=== PATIENT | female | born 1940 | race Caucasian/White ===

== ENCOUNTER 2024-09-10 15:20 | Inpatient (IN) ==
--- NOTE | 2024-09-10 16:01 | ED Physician Documentation ---
History of Present Illness Stated complaint Stated Complaint: RUQ PX Chief complaint Chief Complaint: Abd Pain Additonal information Additional information: 84yo female with no PMHX except hyst (but doesn't see MDs). Developed RUQpain x 36 horus ago, worse with movement. Associated nausea, no vomiting. No probs with BMs or urine 1 mo hx abd bloating. No weight loss. Meds/Allgy Home Medications Ambulatory Orders Medication Instructions Recorded Confirmed No Known Home Medications 09/10/24 09/10/24 Allergies Allergies Allergy/AdvReac Type Severity Reaction Status Date / Time No Known Drug Allergies Allergy Verified 09/10/24 15:36 [facility] Medical History Medical History (Updated 09/10/24 @ 17:48 by Kiran Duarte MD) Macular degeneration of left eye Surgical History Surgical History (Updated 09/10/24 @ 15:35 by Adeola Rivera, RN, BSN) Hx of hysterectomy Social History Social History (Updated 09/10/24 @ 19:11 by Niecy Cortez DO) Smoking Status: Former smoker If you are a former smoker, when did you quit? (Date/Year): 1979 Living arrangement: At home Marital Status: Living Condition: Alone Support Person: Yes Relationship: Living Situation Details: neighbors are support system Level: Independent Do you feel safe in your home environment?: Yes Suffered physical, verbal, emotional, or financial abuse?: No ETOH Use: None Are you sexually active?: No Exam Constitutional normal general appearance and no apparent distress Gastrointestinal normoactive bowel sounds Quite tender in RUQ with rigidity. Extremities 1+ BLE edema Results Vitals Vitals: Vital Signs - 24 hr 09/10/24 15:32 09/10/24 16:13 09/10/24 17:06 Temperature 36.8 C Temperature Source Oral Pulse Rate 100 H Respiratory Rate 15 Blood Pressure 196/86 H O2 Saturation 98 O2 Source Room air Pain Intensity 9 9 0 09/10/24 17:26 09/10/24 18:12 09/10/24 18:14 Temperature Temperature Source Pulse Rate 99 H 92 H Respiratory Rate 16 16 Blood Pressure 165/113 H 187/76 H O2 Saturation 97 95 O2 Source Room air Room air Pain Intensity 2 5 5 09/10/24 19:26 Temperature Temperature Source Pulse Rate 65 Respiratory Rate 18 Blood Pressure 158/71 H O2 Saturation 95 O2 Source Room air Pain Intensity 3 Oxygen O2 Source Room air EKG (time done) 1750: EKG releavant findings:: EKG personally interpreted by author of this note. Relevant findings are: Normal sinus rhythm with a rate of 89. Very mild lateral ST depression. No prolonged QT. No Q waves. Labs Labs: Laboratory Tests 09/10/24 09/10/24 09/10/24 16:03 16:21 17:16 WBC 10.1 RBC 4.58 Hgb 14.3 Hct 42.0 MCV 91.7 MCH 31.2 H MCHC 34.0 RDW 13.5 Plt Count 151 MPV 10.0 Neut # (Auto) 9.3 H Lymph # (Auto) 0.3 L [place] # (Auto) 0.5 Eos # (Auto) 0.0 Baso # (Auto) 0.0 Absolute Nucleated RBC 0.00 Nucleated RBC % 0.0 PT INR Sodium 135 Potassium 3.7 Chloride 101 Carbon Dioxide 30 Anion Gap 4.0 L BUN 15 Creatinine 0.7 Estimated GFR (MDRD) 79 L Glucose 151 H Calcium 10.7 H Total Bilirubin 1.0 AST 26 ALT 26 Alkaline Phosphatase 88 Total Protein 7.1 Albumin 4.1 Globulin 3.0 Albumin/Globulin Ratio 1.4 Lipase 12 Urine Color DARK YELLOW Urine Clarity CLEAR Urine pH 6.0 Ur Specific [place] 1.025 Urine Protein 30 H Urine Glucose (UA) NEGATIVE Urine Ketones >=80 H Urine Occult Blood NEGATIVE Urine Nitrite NEGATIVE Urine Bilirubin SMALL H Urine Urobilinogen 1 (NORMAL) Ur Leukocyte Esterase NEGATIVE Urine RBC 0-5 Urine WBC 4-5 Ur Squamous Epith Cells FEW Squamous Urine Bacteria Rare Ur Microscopic Review INDICATED Urine Culture Comments NOT INDICATED 09/10/24 18:00 WBC RBC Hgb Hct MCV MCH MCHC RDW Plt Count MPV Neut # (Auto) Lymph # (Auto) [place] # (Auto) Eos # (Auto) Baso # (Auto) Absolute Nucleated RBC Nucleated RBC % PT 13.3 H INR 1.2 Sodium Potassium Chloride Carbon Dioxide Anion Gap BUN Creatinine Estimated GFR (MDRD) Glucose Calcium Total Bilirubin AST ALT Alkaline Phosphatase Total Protein Albumin Globulin Albumin/Globulin Ratio Lipase Urine Color Urine Clarity Urine pH Ur Specific [place] Urine Protein Urine Glucose (UA) Urine Ketones Urine Occult Blood Urine Nitrite Urine Bilirubin Urine Urobilinogen Ur Leukocyte Esterase Urine RBC Urine WBC Ur Squamous Epith Cells Urine Bacteria Ur Microscopic Review Urine Culture Comments Rads (name of study) CT abd: Relevant Findings:: Final report received and EMP independent interpretation of test (Free fluid on the right from indeterminant source) Interpretation: 1. Inflammatory changes and fluid in the right abdomen. Differential diagnosis appendicitis versus cholecystitis. The appendix is slightly dilated. Inflammatory changes surrounding the appendix. The gallbladder demonstrates pericholecystic fluid and wall enhancement. No calcified gallstones are seen. Mildly prominent bile ducts. 2. No bowel obstruction. No pneumoperitoneum. 3. Small indeterminate lesion in the liver measuring 1.4 cm. This could represent a hemangioma. -This can be further characterized with multiphase liver CT or MRI on a nonemergent basis. Preop CXR-NAD: Relevant Findings:: Final report received and EMP independent interpretation of test PD Medical Decision Making ED course ED course: She presents with severe right upper quadrant pain of 36 hours duration and is quite tender. She has unremarkable white count. Mild hyperglycemia. Concentrated urine. She was administered morphine with good relief. The CT demonstrates free fluid on the right. Radiologist vacillated as to whether this was appendicitis versus cholecystitis. Clinically more consistent with cholecystitis. Dr. Cortez is our surgeon and I asked her to come see the patient. She requested an add-on EKG and chest x-ray for preop purposes given her advanced age and lack of routine care. Subsequently she also requested a right upper quadrant ultrasound to aid in her surgical decision making. Her preop EKG and chest x-ray were unremarkable. We did give her some Zosyn for likely intra-abdominal infection. The patient was counseled as to the diagnosis and need for admission. This document was made in part using voice recognition software, while efforts are made to proofread this document, sound alike an grammatical errors may occur. Discharge Plan Discharge Patient Disposition: ED Transfer to [facility] Condition: Serious Clinical Impression: Acute abdomen Prescriptions: No Action No Known Home Medications Print Language: Kenyan Stand Alone Forms: PCP List
[2024-09-10 16:08] LABS: BASOPHILS % (AUTO) 0.2 %; HGB - HEMOGLOBIN 14.3 g/dL (12.0-16.0); LYMPHOCYTES # (AUTO) 0.3 10^3/uL (1.5-3.5); MEAN CORPUSCULAR HEMOGLOBIN 31.2 pg (27.0-31.0); MEAN CORPUSCULAR VOLUME 91.7 fL (81.0-99.0); MONOCYTES # (AUTO) 0.5 10^3/uL (0.0-1.0); MONOCYTES % (AUTO) 4.6 %; NEUTROPHILS # (AUTO) 9.3 10^3/uL (1.5-6.6); PLT - PLATELET COUNT 151 10^3/uL (130-450); RED BLOOD COUNT 4.58 10^6/uL (4.20-5.40); RED CELL DISTRIBUTION WIDTH 13.5 % (12.0-15.0); WHITE BLOOD COUNT 10.1 x10^3/uL (4.8-10.8)
[2024-09-10] MEDS: MORPHINE 10 MG/ML VIAL IVP STA ×2 (16:13→18:12)
[2024-09-10 16:39] LABS: ALBUMIN 4.1 g/dL (3.2-5.5); ALBUMIN/GLOBULIN RATIO 1.4 (1.0-2.2); CALCIUM 10.7 mg/dL (8.5-10.3); CREATININE 0.7 mg/dL (0.6-1.3); POTASSIUM 3.7 mmol/L (3.5-4.5); TOTAL PROTEIN 7.1 g/dL (6.4-8.9)
[2024-09-10] MEDS ORDERED: iohexoL-300 100 ML VIAL ONE (16:39)
[2024-09-10] MEDS: iohexoL-300 100 ML VIAL IVP ONE (17:01)
[2024-09-10 17:24] LABS: BILIRUBIN,URINE SMALL (NEGATIVE); GLUCOSE, URINE (UA) NEGATIVE (NEGATIVE); KETONES,URINE (UA) >=80 mg/dL (NEGATIVE); LEUKOCYTE ESTERASE, URINE NEGATIVE (NEGATIVE); NITRITE,URINE NEGATIVE (NEGATIVE); OCCULT BLOOD,URINE NEGATIVE (NEGATIVE); PROTEIN,URINE 30 mg/dL (NEGATIVE); UROBILINOGEN,URINE 1 (NORMAL) E.U./dL (NORMAL)
[2024-09-10 17:28] LABS: CLARITY,URINE CLEAR (CLEAR)
[2024-09-10 17:34] LABS: BACTERIA,URINE Rare /HPF (None Seen); RBC,URINE 0-5 /HPF (0-5); SQUAMOUS EPITHELIAL CELL,UR FEW Squamous (<= Few)
--- NOTE | 2024-09-10 17:38 | CT Report ---
PROCEDURE: CT Abdomen/Pelvis W INDICATIONS: RUQ pain, IV only CONTRAST: 100ml [id number] TECHNIQUE: After the administration of intravenous contrast, a CT scan of the abdomen and pelvis was performed. Images were recorded and evaluated at appropriate window settings. Reformats: coronal and sagittal. F or radiation dose reduction, the following was used: automated exposure control, adjustment of mA and /or kV according to patient size. COMPARISON: None. FINDINGS: Image quality: Diagnostic. Lower chest: Unremarkable. Liver: Small cyst or area of scarring at the right posterior liver. Small lesion measuring 1.4 cm wit h a enhancing focus, (2/24). This could represent a small hemangioma. Gallbladder: Within normal limits in size. No calcified gallstones. There is pericholecystic fluid. I ncreased conspicuity of the gallbladder wall. Biliary tree: There are prominent intrahepatic bile ducts. CBD measures 0.8 cm, (4/34). Spleen: No splenomegaly. Pancreas: Pancreatic duct is within normal limits. No peripancreatic fluid collection. Adrenals: No adrenal nodule. Kidneys and ureters: No hydronephrosis. No renal cystic lesion which requires follow up. No solid mas s. Stomach, bowel and peritoneum: The cecum is prominent. There is fluid surrounding the cecum. The appe ndix is measures 0.8 cm in diameter, (4/35). The appendix is not well-defined. There is haziness to t he surrounding fat. No air within the appendiceal lumen. Small focus near the tip of the appendix whi ch could represent an appendicolith. Small amount of fluid in the right abdomen. No pneumoperitoneum. Lymph nodes: No central or retroperitoneal adenopathy. Vessels: No infrarenal aortic aneurysm. Patent portal vein. PELVIS Reproductive organs: The uterus is absent. There are prominent left pelvic veins. Small amount of ray e fluid in the pelvis. Bladder: No stone. Pelvic lymph nodes: No pelvic adenopathy by size criteria. Bones: No aggressive osseous abnormality. Multilevel DDD. Severe right hip DJD. Other: No significant ventral or inguinal hernia. IMPRESSION: 1. Inflammatory changes and fluid in the right abdomen. Differential diagnosis appendicitis versus ch olecystitis. The appendix is slightly dilated. Inflammatory changes surrounding the appendix. The gal lbladder demonstrates pericholecystic fluid and wall enhancement. No calcified gallstones are seen. M ildly prominent bile ducts. 2. No bowel obstruction. No pneumoperitoneum. 3. Small indeterminate lesion in the liver measuring 1.4 cm. This could represent a hemangioma. -This can be further characterized with multiphase liver CT or MRI on a nonemergent basis. Results were communicated to Dr. Stevenson at 09/10/2024 5:33 PM PST. Reviewed by: Pelon Gay MD on 09/10/2024 5:37 PM PST Approved by: Pelon Gay MD on 09/10/2024 5:37 PM PST Station ID: [id number]
[2024-09-10] MEDS: PIPERACILLIN/TAZOBACTAM 3.375 GM in SODIUM CHLORIDE 0.9% MINIBAG 100 ML IV STA (18:07)
--- NOTE | 2024-09-10 18:15 | XRAY Report ---
PROCEDURE: XR Chest 1V INDICATIONS: preop TECHNIQUE: One view of the chest was acquired. COMPARISON: None. FINDINGS: Surgical changes and devices: None. Lungs and pleura: No dense airspace disease or pleural effusions. Mediastinum: Normal heart size Bones and chest wall: Degenerative findings. IMPRESSION: No acute radiographic abnormality on this single view study. Reviewed by: Trenton Sherman MD on 09/10/2024 6:02 PM [facility] Approved by: Trenton Sherman MD on 09/10/2024 6:02 PM [facility] Station ID: [id number]
[2024-09-10 18:19] LABS: INR 1.2 (0.8-1.2); PT - PROTHROMBIN TIME 13.3 secs (9.9-12.6)
[2024-09-10] MEDS: LABETALOL 20 MG/4 ML SYRINGE IVP STA (19:04)
--- NOTE | 2024-09-10 19:17 | Ultrasound Report ---
PROCEDURE: US Abdomen Limited INDICATIONS: RUQ pain TECHNIQUE: Real-time focused scanning was performed of the abdomen, with image documentation. COMPARISONS: CT abdomen and pelvis earlier today. FINDINGS: Liver: Echogenic focus in the right lobe of the liver measuring about 1.9 cm. Most consistent with a hemangioma. Gallbladder: Gallbladder is prominent size. The gallbladder wall measures 3.3 cm and is minimally thi ckened. No pericholecystic fluid is appreciated. No sonographic Steele's sign reported. No gallstones . Biliary ducts: Intrahepatic bile ducts are non-dilated. Extrahepatic bile duct caliber measures 9 m m. Normal is 6-7 mm or less in diameter, or 10 mm or less post-cholecystectomy. Pancreas: Not well visualized due to overlying bowel gas. Right kidney: Normal in size and echotexture. Right kidney measures 10.4 cm long. No hydronephrosis or nephrolithiasis. No solid masses. No complex renal cystic lesions which require follow-up. IMPRESSION: Exam is technically difficult. 1. Mild gallbladder wall thickening. No gallstones. Acalculus cholecystitis remains in the differenti al diagnosis. 2. Mild biliary ductal dilatation. 3. Echogenic focus in the liver measuring 1.9 cm. This is most consistent with a hemangioma. Reviewed by: Pelon Gay MD on 09/10/2024 7:16 PM PST Approved by: Pelon Gay MD on 09/10/2024 7:16 PM PST Station ID: [id number]
--- NOTE | 2024-09-10 19:29 | HISTORY & PHYSICAL EXAMINATION ---
History of Present Illness History of Present Illness HPI Comment/Other: 84yoF began having right sided abdominal pain on Monday (2 days ago), ate some left overs the day before and thought it was food poisoning, but pain progressed, associated with nausea, anorexia. Denies emesis, had normal BM this AM, no blood in stool. Denies similar prior pain in the past. Denies history of heartburn. Denies fever chestpain or sob. She takes no medications, has not been to a doctor in years, generally does not like doctors. Is hypertensive in the ED but states she always has 'white coat htn', hypertension has persisted throughout ED stay and is getting labetalol now. She is a and lives alone for last 27yrs, [place] in [place]. No tob or etoh use. She has never considered her wishes around end of life choices, and at this time would like to be a full code. Meds/Allgy Home Medications Ambulatory Orders Medication Instructions Recorded Confirmed No Known Home Medications 09/10/24 09/10/24 Allergies Allergies Allergy/AdvReac Type Severity Reaction Status Date / Time No Known Drug Allergies Allergy Verified 09/10/24 15:36 [facility] Medical History Medical History (Updated 09/10/24 @ 17:48 by Kiran Duarte MD) Macular degeneration of left eye Surgical History Surgical History (Updated 09/10/24 @ 15:35 by Adeola Rivera, RN, BSN) Hx of hysterectomy Social History Social History (Updated 09/10/24 @ 19:11 by Niecy Cortez DO) Smoking Status: Former smoker If you are a former smoker, when did you quit? (Date/Year): 1979 Living arrangement: At home Marital Status: Living Condition: Alone Support Person: Yes Relationship: Living Situation Details: neighbors are support system Level: Independent Do you feel safe in your home environment?: Yes Suffered physical, verbal, emotional, or financial abuse?: No ETOH Use: None Are you sexually active?: No Review of Systems Status of ROS: 10 or more systems reviewed and unremarkable except as noted in history and below Exam Constitutional normal general appearance Frail elderly female, mild distress 2/2 pain HENMT head/scalp atraumatic Eyes EOMs intact bilaterally and conjunctivae normal Neck/C-Spine visual inspection normal Respiratory normal respiratory effort Cardiovascular normal heart rate noted Gastrointestinal abdomen abnormal to inspection, abdomen soft to palpation, tender to palpation and distended distended abdomen but soft, no left sided abdominal pain, both RUQ and RLQ exquisite ttp with peritoneal signs (+murpheys, +rebound ttp) Extremities no deformity mild L>R Edema at ankles, mild venous reflux changes Psychiatry oriented x3 Skin skin color normal Conclusion/Plan Problem List (1) Acute abdomen: Plan: 84yoF presenting with 2 days of right sided abdominal pain, acute abdomen. No established comorbidities as she does not visit the doctor, but persistent HTN in ED; glucose 150. +Murpheys/rebound exam on right side of abdomen, low grade tachycardia (92-100) without fever or hypotension. Labs overall unremarkable - no leukocytosis, LFTs and lipase normal, creatinine normal; UA +Ketones. CT remarkable for significant amount of free fluid and right sided inflammation, but unclear if etiology is appendix vs gallbladder vs other. RUQUS shows gbw at upper limit of normal and significantly dilated duct without visible stones in gallbladder or duct, though in the setting of normal LFTs. She clearly has an acute abdomen by exam and an acute process on CT, though specific diagnosis not clear via exam, labs & imaging. The volume of free fluid makes me concerned for perforated ulcer, however there is no free air or specific finding on CT to localize source of stomach or duodenum. Discussed findings with patient, and recommend diagnostic laparoscopy. Discussed that possible interventions would include appendectomy, cholecystectomy (in which case I would completed a cholangiogram), bowel resection, conversion to open surgery, or other interventions as indicated. I discussed that the alternative is to not go to surgery now, admit her and observe/trend labs to see if a more specific diagnosis becomes clear; and that this poses a risk that she become more sick before we can do a required surgery, which could increase potential complications. We also discussed that with her not having seen a doctor in years, there are increased risks under anesthesia of encountering unknown comorbidities, notably her significant HTN in the ED. A CXR and EKG were checked in the ED without acute abnormalities. She understands, and would like to proceed with surgery. - Proceed to OR for diagnostic laparoscopy, possible appendectomy, possible cholecystectomy, possible cholangiogram, possible exploratory laparotomy, or other interventions as indicated. - Labetalol and Zosyn given in ED - Admit to Obsv postop - Further postop plan pending intraoperative findings. Niecy Cortez DO, ERASTO General Surgeon, [facility] Lab Results Lab results reviewed: Yes 09/10/24 16:03 09/10/24 16:21 Diagnostic Imaging Results Diagnostic Imaging Results: positive Final report reviewed and Read contemporaneously Diagnostic Imaging Results Comments: CT abd/pel - PROCEDURE: CT Abdomen/Pelvis W INDICATIONS: RUQ pain, IV only CONTRAST: 100ml [id number] TECHNIQUE: After the administration of intravenous contrast, a CT scan of the abdomen and pelvis was performed. Images were recorded and evaluated at appropriate window settings. Reformats: coronal and sagittal. For radiation dose reduction, the following was used: automated exposure control, adjustment of mA and/or kV according to patient size. COMPARISON: None. FINDINGS: Image quality: Diagnostic. Lower chest: Unremarkable. Liver: Small cyst or area of scarring at the right posterior liver. Small lesion measuring 1.4 cm with a enhancing focus, (2/24). This could represent a small hemangioma. Gallbladder: Within normal limits in size. No calcified gallstones. There is pericholecystic fluid. Increased conspicuity of the gallbladder wall. Biliary tree: There are prominent intrahepatic bile ducts. CBD measures 0.8 cm, (4/34). Spleen: No splenomegaly. Pancreas: Pancreatic duct is within normal limits. No peripancreatic fluid collection. Adrenals: No adrenal nodule. Kidneys and ureters: No hydronephrosis. No renal cystic lesion which requires follow up. No solid mass. Stomach, bowel and peritoneum: The cecum is prominent. There is fluid surrounding the cecum. The appendix is measures 0.8 cm in diameter, (4/35). The appendix is not well-defined. There is haziness to the surrounding fat. No air within the appendiceal lumen. Small focus near the tip of the appendix which could represent an appendicolith. Small amount of fluid in the right abdomen. No pneumoperitoneum. Lymph nodes: No central or retroperitoneal adenopathy. Vessels: No infrarenal aortic aneurysm. Patent portal vein. PELVIS Reproductive organs: The uterus is absent. There are prominent left pelvic veins. Small amount of free fluid in the pelvis. Bladder: No stone. Pelvic lymph nodes: No pelvic adenopathy by size criteria. Bones: No aggressive osseous abnormality. Multilevel DDD. Severe right hip DJD. Other: No significant ventral or inguinal hernia. IMPRESSION: 1. Inflammatory changes and fluid in the right abdomen. Differential diagnosis appendicitis versus cholecystitis. The appendix is slightly dilated. Inflammatory changes surrounding the appendix. The gallbladder demonstrates pericholecystic fluid and wall enhancement. No calcified gallstones are seen. Mildly prominent bile ducts. 2. No bowel obstruction. No pneumoperitoneum. 3. Small indeterminate lesion in the liver measuring 1.4 cm. This could represent a hemangioma. -This can be further characterized with multiphase liver CT or MRI on a nonemergent basis. Results were communicated to Dr. Stevenson at 09/10/2024 5:33 PM PST. Reviewed by: Pelon Gay MD on 09/10/2024 5:37 PM PST Approved by: Pelon Gay MD on 09/10/2024 5:37 PM PST RUQUS - GBW at upper limit of normal but no cholelithiasis, CBD 9mm, CHD 13mm, no choledocholithiasis visualized CXR - PROCEDURE: XR Chest 1V INDICATIONS: preop TECHNIQUE: One view of the chest was acquired. COMPARISON: None. FINDINGS: Surgical changes and devices: None. Lungs and pleura: No dense airspace disease or pleural effusions. Mediastinum: Normal heart size Bones and chest wall: Degenerative findings. IMPRESSION: No acute radiographic abnormality on this single view study. EKG Results EKG Comparison: Old EKG unavailable
[2024-09-10] MEDS ORDERED: LIDOCAINE 1%-EPI 1:100000 20 ML MDV ONE (19:56)
[2024-09-10] MEDS ORDERED: iohexoL-240 10 ML VIAL IVP ONE (19:56)
[2024-09-10] MEDS ORDERED: BUPIVACAINE 0.25% PF 30 ML VIAL ONE (19:56)
[2024-09-10 19:58] LABS: HCG UR QUAL NEGATIVE
[2024-09-10] MEDS ORDERED: fentaNYL 100 MCG/2 ML VIAL ONE ×2 (21:09→22:52)
[2024-09-10] MEDS ORDERED: PROPOFOL 200 MG/20 ML VIAL IVP ONE (21:19)
[2024-09-10] MEDS ORDERED: ONDANSETRON 4 MG/2 ML VIAL ONE (21:19)
[2024-09-10] MEDS ORDERED: LIDOCAINE-PF 2% 10 ML AMP SUBQ ONE (21:19)
[2024-09-10] MEDS ORDERED: ROCURONIUM 50 MG/5 ML VIAL ONE (21:19)
--- NOTE | 2024-09-10 21:52 | ANESTHESIA PROCEDURE NOTE ---
Pre-Anesthesia VS, & Labs Diagnosis Surgical Diagnosis:: abd pain Procedure Procedure: exploratory laparotomy Vitals Vital Signs: Temp Pulse Resp BP Pulse Ox 36.8 C 78 18 178/65 H 98 09/10/24 15:32 09/10/24 21:10 09/10/24 21:10 09/10/24 21:10 09/10/24 21:10 NPO NPO: >8 hours Is Patient ?: No Lab Results Current Lab Results: Laboratory Tests 09/10/24 18:00: PT 13.3 H, INR 1.2 09/10/24 16:21: Sodium 135, Potassium 3.7, Chloride 101, Carbon Dioxide 30, A nion Gap 4.0 L, BUN 15, Creatinine 0.7, Estimated GFR (MDRD) 79 L, Glucose 151 H , Calcium 10.7 H, Total Bilirubin 1.0, AST 26, ALT 26, Alkaline Phosphatase 88, Total Protein 7.1, Albumin 4.1, Globulin 3.0, Albumin/Globulin Ratio 1.4, Lipase 12 09/10/24 16:03: WBC 10.1, RBC 4.58, Hgb 14.3, Hct 42.0, MCV 91.7, MCH 31.2 H, MCHC 34.0, RDW 13.5, Plt Count 151, MPV 10.0, Neut # (Auto) 9.3 H, Lymph # (Auto) 0.3 L, [place] # (Auto) 0.5, Eos # (Auto) 0.0, Baso # (Auto) 0.0, Absolute Nucleated RBC 0.00, Nucleated RBC % 0.0 09/10/24 16:03 09/10/24 16:21 Meds/Allgy Home Medications Ambulatory Orders Medication Instructions Recorded Confirmed No Known Home Medications 09/10/24 09/10/24 Allergies Allergies Allergy/AdvReac Type Severity Reaction Status Date / Time No Known Drug Allergies Allergy Verified 09/10/24 15:36 [facility] Medical History Medical History (Updated 09/10/24 @ 17:48 by Kiran Duarte MD) Macular degeneration of left eye Surgical History Surgical History (Updated 09/10/24 @ 15:35 by Adeola Rivera, RN, BSN) Hx of hysterectomy Social History Social History (Updated 09/10/24 @ 19:11 by Niecy Cortez DO) Smoking Status: Former smoker If you are a former smoker, when did you quit? (Date/Year): 1979 Living arrangement: At home Marital Status: Living Condition: Alone Support Person: Yes Relationship: Living Situation Details: neighbors are support system Level: Independent Do you feel safe in your home environment?: Yes Suffered physical, verbal, emotional, or financial abuse?: No ETOH Use: None Are you sexually active?: No Anesthesia Exam (Expanded) Exam General: Alert, Oriented x3 and Cooperative Dental: WNL Mouth Openin Fingerbreadth Neck Mobility: Normal Mallampati classification: I Thyromental Distance: 4-6 cm Respiratory: Lungs clear Cardiovascular: Regular rate Plan Problem List (1) Acute abdomen: Plan: 84yoF presenting with 2 days of right sided abdominal pain, acute abdomen. No established comorbidities as she does not visit the doctor, but persistent HTN in ED; glucose 150. +Murpheys/rebound exam on right side of abdomen, low grade tachycardia (92-100) without fever or hypotension. Labs overall unremarkable - no leukocytosis, LFTs and lipase normal, creatinine normal; UA +Ketones. CT remarkable for significant amount of free fluid and right sided inflammation, but unclear if etiology is appendix vs gallbladder vs other. RUQUS shows gbw at upper limit of normal and significantly dilated duct without visible stones in gallbladder or duct, though in the setting of normal LFTs. She clearly has an acute abdomen by exam and an acute process on CT, though specific diagnosis not clear via exam, labs & imaging. The volume of free fluid makes me concerned for perforated ulcer, however there is no free air or specific finding on CT to localize source of stomach or duodenum. Discussed findings with patient, and recommend diagnostic laparoscopy. Discussed that possible interventions would include appendectomy, cholecystectomy (in which case I would completed a cholangiogram), bowel resection, conversion to open surgery, or other interventions as indicated. I discussed that the alternative is to not go to surgery now, admit her and observe/trend labs to see if a more specific diagnosis becomes clear; and that this poses a risk that she become more sick before we can do a required surgery, which could increase potential complications. We also discussed that with her not having seen a doctor in years, there are increased risks under anesthesia of encountering unknown comorbidities, notably her significant HTN in the ED. A CXR and EKG were checked in the ED without acute abnormalities. She understands, and would like to proceed with surgery. - Proceed to OR for diagnostic laparoscopy, possible appendectomy, possible cholecystectomy, possible cholangiogram, possible exploratory laparotomy, or other interventions as indicated. - Labetalol and Zosyn given in ED - Admit to Obsv postop - Further postop plan pending intraoperative findings. Niecy Cortez DO, FACS General Surgeon, [facility] Plan Anesthesia Type: General Consent for Procedure(s) Verified and Reviewed: Yes Code Status: Attempt Resuscitation ASA Classification ASA classification: 2-Mild systemic disease Is this case an emergency?: Yes
[2024-09-10] MEDS ORDERED: NALOXONE 0.4 MG/ML VIAL IVP PRN (21:54)
[2024-09-10] MEDS ORDERED: METOCLOPRAMIDE 10 MG/2 ML VIAL IVP PRN (21:54)
[2024-09-10] MEDS ORDERED: ePHEDrine 50 MG/ML VIAL IVP PRN (21:54)
[2024-09-10] MEDS ORDERED: fentaNYL 100 MCG/2 ML VIAL IVP PRN (21:54)
[2024-09-10] MEDS ORDERED: HYDROmorphone 0.5 MG/0.5 ML SYRINGE IVP PRN ×2 (21:54→23:57)
[2024-09-10] MEDS ORDERED: ONDANSETRON 4 MG/2 ML VIAL IVP PRN (21:54)
[2024-09-10] MEDS ORDERED: ATROPINE ABBOJECT 1 MG/10 ML SYRINGE IVP PRN (21:54)
[2024-09-10] MEDS ORDERED: MORPHINE 2 MG/ML CARPUJECT IVP PRN (21:54)
[2024-09-10] MEDS ORDERED: ACETAMINOPHEN 1,000 MG/100 ML 1,000 MG/100 ML BAG IV ONE (22:23)
[2024-09-10] MEDS ORDERED: SUGAMMADEX 200 MG/2 ML VIAL IVP ONE (23:15)
--- NOTE | 2024-09-10 23:46 | OPERATIVE REPORT ---
Operative Report General Procedure Data: Operation Date: 09/10/24 20:30 Proposed Procedures p Diagnostic Laparoscopy(Not Applicable) - Niecy Cortez DO Actual Procedures p Diagnostic Laparoscopy, Exploratory Laparotomy, Open Appendectomy(Not Applic able) - Niecy Cortez DO Pre-Op Diagnosis: RIGHT ABDOMINAL PAIN, PERITONITIS, FREE PERITONEAL FLUID Anesthesia Type General Case Staff Anesthesia Provider: Angeles Howard Case Times Into Recovery: 09/10/24 23:31 Procedure Start: 09/10/24 21:36 Procedure End: 09/10/24 23:18 Time out: 09/10/24 21:35 Pre-Op Diagnosis: right abdominal pain, peritonitis, free peritoneal fluid Post Op Diagnosis: Acute perforated appendicitis, purulent peritonitis Procedure Note Intake, IV Amount (ml): 900 Estimated Blood Loss (ml): 20 Output, Urine Amount (ml): 300 Drain/Tube Type: Other (NGT, Taylor left at case conclusion) Pathology: 1) Appendix Indications: 84yoF presented to the emergency room with an acute abdomen with exquisite right upper and lower tenderness, low grade tachycardia without fever or hypotension, normal WBC and LFTs, and a CT scan showing significant inflammation and free fluid in the right abdomen, unclear diagnosis of appendicitis vs cholecystitis vs other (perforated viscus). Findings: Free purulent fluid in the RUQ, Right gutter, RLQ and pelvis upon entry, along with significantly inflamed colon in the right hemiabdomen. Diagnostic laparoscopy suggested acute appendicitis with a very mobile cecum, very long appendix tracking toward the RUQ, but unable to clearly identify appendiceal tip laparoscopically. Converted to open. Tip of appendix was perforated and wedged posterior to gallbladder, lateral to the duodenum, and adhered to right kidney capsule. Open appendectomy completed, base suture ligated and imbricated. Complete exploration of peritoneal cavity including lesser sac ruled out a secondary perforated viscus. Complications: None Other Other Information/Narrative: The patient was brought to the operating room with universal protocol observed throughout. They were placed supine on the operating room table with the left arm tucked. A Taylor was placed. General anesthesia with endotracheal tube was induced by the anesthesia service. The abdomen was prepped and draped in standard sterile fasion. A timeout was performed with all members of the team being in agreement. Zosyn had been given in the ED. Local anesthetic of 1% lidocaine with epinephrine mixed with Marcaine plain was injected into the infraumbilical skin, and the skin was incised sharply. Blunt dissection down to the level of the fascia was performed. The umbilical stalk was elevated and the fascia was incised sharply in a vertical orientation and the peritoneal cavity was entered bluntly with a Radha clamp. A 12 mm balloon trocar was placed. The abdomen was insufflated with CO2 gas to a pressure of 15 mmHg which the patient tolerated well. The laparoscope was inserted and visual inspection revealed no evidence of injury upon entry. Initial surveillance of the abdomen revealed purulent fluid in the right upper quadrant, right colic gutter, the right lower quadrant, as well as the pelvis. There was fibrinous debris throughout the right hemiabdomen and the ascending colon was significantly inflamed. Two additional 5mm trocars were placed under direct visualization: one in the left lower quadrant, one in the suprapubic position. Graspers were introduced into the abdomen. Further dissection revealed a very long appendix extending from a mildly inflamed cecum, the appendix was tracking cephalad. The appendix was noted to be very long, and the distal extent was unable to be visualized. The proximal half of the appendix was normal- appearing, the distal visualized portion was clearly inflamed. The gallbladder was evaluated was seen to be distended but relatively thin-walled. For the laparoscopic disc dissection to expose the tip of the appendix was proving to be difficult and decision was made to convert to an open operation so as to achieve the shortest operative time for this elderly patient. A vertical midline incision was made above and below the umbilicus. The peritoneum was entered sharply. There were no adhesions to the anterior abdominal wall. The remainder of the incision was opened under direct visualization with Bovie electrocautery. The cecum and the right colon were externalized, the cecum was noted to be highly mobile. The appendix was traced distally and it was densely adherent within a walled off cavity, that I was able to bluntly and carefully open. This cavity ended up being posterior to the gallbladder, lateral to the duodenum, and adherent to the anterior surface of the renal capsule. The distal portion of the appendix was inflamed with early signs of necrosis, and a perforation. Decision was then made to proceed with a simple open appendectomy. The base of the appendix was suture-ligated with 0 silk suture. The appendiceal stump was imbricated with a 2-0 silk [id number] suture followed by tacking epiploic appendage over the [id number] suture with another 2-0 silk stitch. At this point I decided to thoroughly explore the remainder of the abdomen to ensure there was no secondary perforation of a hollow viscus, given the extent of inflammation and free fluid that was in the abdomen. The small bowel was run from the cecum to the ligament of Treitz, the entirety of the small bowel was uninflamed, decompressed, with no abnormality. The anterior surface of the stomach was explored which appeared normal. The omentum between the greater curvature of the stomach and the transverse colon was opened with the LigaSure device to enter the lesser sac, the lesser sac had no free fluid or purulence within it, the posterior wall of the stomach was intact, there is no evidence of gastric perforation. The gallbladder was then evaluated further, it was palpated and no stones were appreciated, no significant inflammation inherent to the gallbladder aside from the portion of the gallbladder that was creating a rind around the appendix. The duodenum was partially kocherized enough that I was able to verify that there were no new pockets of purulence around the duodenum and palpated confirming that there were no duodenal perforations. The surface of the liver was palpated it was noted to be smooth with no masses or nodularity. The large bowel was run from the rectum more proximally. The rectum sigmoid descending colon and transverse colon were normal. The cecum ascending colon and hepatic flexure were mildly inflamed but there was no evidence of perforation; rather this seems to be reactive inflammation from the purulent flu id secondary to the perforated appendicitis. The abdomen was irrigated with 6 L of warm normal saline until the effluent returned clear. The fascia was closed with running #1 PDS suture x 2. The wound was irrigated with clean irrigant. Hemostasis in the wound was achieved with Bovie electrocautery. The skin was closed with migue. Silver-impregnated dressing was applied. The patient was extubated and awoken from general anesthesia. The taylor and an NGT (comfirmed in the stomach by palpation) were left in place). There were no complications. All sponge needle counts were correct. The patient was transferred to the PACU in good condition. Class IV case Niecy Cortez DO, FACS General Surgeon, [facility]
[2024-09-10] MEDS: LACTATED RINGERS 1,000 ML IV SCH (23:53)
[2024-09-10] MEDS ORDERED: SODIUM CHLORIDE FLUSH 0.9% 10 ML SYRINGE IVP PRN (23:57)
--- NOTE | 2024-09-11 00:12 | ANESTHESIA POST OP EVALUATION ---
Anesthesia Post Eval Post Anesthesia Eval Vitals: Last Vital Signs Temp 36.5 C 09/10/24 23:45 Pulse 67 09/10/24 23:45 Resp 16 09/10/24 23:45 BP 169/74 H 09/10/24 23:45 Pulse Ox 98 09/10/24 23:45 CV Function Including HR & BP: Stable Pain Control: Satisfactory Nausea & Vomiting: Negative Mental Status: Baseline Respiratory Status: Airway Patent Hydration Status: Satisfactory Anesthesia Complications: None
[2024-09-11] MEDS: LACTATED RINGERS 1,000 ML IV SCH (00:55)
[2024-09-11] MEDS: KETOROLAC 15 MG/ML VIAL IVP SCH (00:59)
[2024-09-11] MEDS: ACETAMINOPHEN 1,000 MG/100 ML 1,000 MG/100 ML BAG IV SCH (01:03)
[2024-09-11] MEDS: SODIUM CHLORIDE FLUSH 0.9% 10 ML SYRINGE IVP SCH (01:04)
[2024-09-11] MEDS: PIPERACILLIN/TAZOBACTAM 3.375 GM in SODIUM CHLORIDE 0.9% MINIBAG 100 ML IV SCH (01:31)
[2024-09-11 06:03] LABS: BASOPHILS % (AUTO) 0.2 %; HCT - HEMATOCRIT 40.2 % (37.0-47.0); HGB - HEMOGLOBIN 13.4 g/dL (12.0-16.0); LYMPHOCYTES # (AUTO) 0.5 10^3/uL (1.5-3.5); LYMPHOCYTES % (AUTO) 5.9 %; MEAN CORPUSCULAR HEMOGLOBIN 30.9 pg (27.0-31.0); MEAN CORPUSCULAR HGB CONC 33.3 g/dL (32.0-36.0); MEAN CORPUSCULAR VOLUME 92.6 fL (81.0-99.0); MEAN PLATELET VOLUME 10.4 fL (7.9-10.8); MONOCYTES # (AUTO) 0.3 10^3/uL (0.0-1.0); MONOCYTES % (AUTO) 4.2 %; NEUTROPHILS # (AUTO) 7.2 10^3/uL (1.5-6.6); NEUTROPHILS % (AUTO) 89.5 %; PLT - PLATELET COUNT 151 10^3/uL (130-450); RED BLOOD COUNT 4.34 10^6/uL (4.20-5.40); RED CELL DISTRIBUTION WIDTH 13.4 % (12.0-15.0)
[2024-09-11 06:07] LABS: SLIDE REVIEW? Indicated
[2024-09-11] MEDS: PANTOPRAZOLE 40 MG VIAL IVP SCH (06:15)
[2024-09-11 06:21] LABS: ALBUMIN 3.2 g/dL (3.2-5.5); ALBUMIN/GLOBULIN RATIO 1.3 (1.0-2.2); BILIRUBIN,TOTAL 1.2 mg/dL (0.2-1.0); CALCIUM 9.7 mg/dL (8.5-10.3); CREATININE 0.9 mg/dL (0.6-1.3); POTASSIUM 4.2 mmol/L (3.5-4.5); TOTAL PROTEIN 5.6 g/dL (6.4-8.9)
[2024-09-11 07:02] LABS: DIFFERENTIAL COMMENT MANUAL=AUTO DIFF; PLATELET ESTIMATE, MANUAL NORMAL (130-450,000) (NORMAL); PLATELET MORPHOLOGY NORMAL APPEARANCE (NORMAL); RBC MORPHOLOGY (MULTIPLE) NORMAL APPEARANCE (NORMAL); WBC MORPHOLOGY (MULTIPLE) NORMAL APPEARANCE (NORMAL)
[2024-09-11] MEDS: ENOXAPARIN 40 MG/0.4 ML SYRINGE SUBQ SCH (11:05)
[2024-09-11] MEDS: ONDANSETRON 4 MG/2 ML VIAL IVP PRN (12:35)
--- NOTE | 2024-09-11 13:21 | OT Plan of Care ---
OT Inpatient POC Diagnosis DIAGNOSIS Diagnosis: Appendicitis s/p ex lap appendectomy Chief Complaint: Abdominal pain 2 days MEDICAL/SURGICAL HISTORY Medical History (Updated 09/10/24 @ 17:48 by Kiran Duarte MD) Macular degeneration of left eye Surgical History (Updated 09/10/24 @ 15:35 by Adeola Rivera, RN, BSN) Hx of hysterectomy Assessment and Goals ASSESSMENT Assessment: 84yoF presenting with 2 days of right sided abdominal pain. Work up revealed possible appendicitis vs cholecystitis To OR on 09/10 for laparoscopic turned ex lap for appendectomy. Extubated and in post op with no complications. Remains on NG tube to intermittent suction. No abdominal binder in place at this time. NG tube removed for mobility with RN approval. Pt met supine in bed, A&Ox4, willing to participate with therapy. Educated on abdominal precautions - in agreement and will cont to reinforce. Pt performed supine to sit (log roll) MIN Ax2 - EOB sitting CGA with + dizziness and nausea - NG tube replaced back to suction with relief. BP 156/72 O2 96% on RA. Pt agreeable to OOB to chair - Performed sit to stand and spt bed to chair MIN A x2 using 2WW. Rec commode at this time with nursing. Overall pt MOD A UB/LB dressing with full set up and increased time - will benefit from cont education on pacing strategies and abdominal precautions. Overall pt presents with decreased activity tolerance, endurance, strength, and ADL stauts impairing functional inp. Will benefit from cont OT services during acute stay and rec d/c to SNF at this time. -Activities of Daily Living Improve Upper Extremity Dressing to:: Modified Independent Improve Lower Extremity Dressing to:: Modified Independent Improve Grooming/Hygiene to:: Modified Independent Improve Bathing to:: Modified Independent Improve Toileting to:: Modified Independent Other Activities of Daily Living Goal:: Using compensatory techniques 2/2 abdominal precautions
--- NOTE | 2024-09-11 13:37 | PT Plan of Care ---
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 Pt lives indep in [facility] w/ 2STE, uses cane for mobility and overall indep at baseline. Does not drive d/t macular degeneration. Upon PT eval, pt presents with NG tube in place, hoarse voice but alert and oriented to self, situation. Demonstrates some forgetfulness and mildly distractible but follows cues well throughout session. Abdominal dressing in place with small, dime sized bleed through. Dressing marked and nurse notified. Denies pain initially but during supine to sit transfer reports mild to moderate abdominal pain. Some anxiety present as pt repeates "I can't do this" but is easily redirected and encouraged to participate. Able to transfer to standing with FWW and min to modAx2, short distance stand pivot to chair and reports increased nausea with activity. Pt will benefit from skilled PT in acute setting to improve activity tolerance and confidence with mobility. When medically clear, PT rec dc to SNF as pt is far below baseline and will need assist for amb and ADLs. GOALS Improve supine to sit to:: Modified Independent Improve sit to stand to:: Contact Guard Improve sit to supine to:: Contact Guard Improve gait ability to:: Min A Advance Assistive Device to:: Front Wheeled Walker Increase distance walked to (in feet):: 50 PLAN Frequency: 1-2x/day Duration: Until goals are met DISCHARGE RECOMMENDATIONS [facility] Equipment Recommended: Front wheeled walker Other Discharge Equipment: may need FWW Transport Needs at Discharge: Wheelchair van
--- NOTE | 2024-09-11 15:44 | PHARMACY PROGRESS NOTE ---
Best Possible Medication History Admit Date and Time: 09/11/24 [id number] Home Medications Medication Instructions Recorded Confirmed Type acetaminophen 500 mg tablet 500 mg PO Q4H PRN pain 09/11/24 09/11/24 History Processed by: Pharmacy (Medication Reconciliation completed by Tire And Tube RepairerErin Matamoros) Medications reviewed in ED?: No Medication History completed: Yes Patient Interview: Completed Secondary Source(s): Insurance records [facility] Statement: As the person ultimately responsible for medication therapy, providers are able to order a medication from an existing home medication list in [facility] via the "Reconcile Routine" prior to Confirmation of that medication by security support analyst. Such practice is discouraged except when the physician, in their clinical judgment, deems that a medical need exists for a medication without regard to previous use.
--- NOTE | 2024-09-11 17:29 | PROVIDER PROGRESS NOTE ---
Subjective General Admit Date: 09/11/24 Procedure Date: 09/10/24 Post Op Days: 1 Procedure Performed: diagnostic laparoscopy -> exploratory laparotomy, open appendectomy Other Other Information/Narrative: POD1 s/p dx lap --> ex lap revealing perforated appendicitis with purulent peritonitis & open appendectomy. HARDY overnight with NGT + taylor in place. SBP up to 150s but much improved from ED preop, o/w HDN/AF/on RA. NGT with about 200cc mod-thick gastric output, denies nausea but no appetite and not passing gas. A bit distractable on rounds - when I ask her if she has an appetite, she tells me what type of meals she is stocked to prepare at home. Pain is well controlled on scheduled IV tyl/toradol, used no dilaudid. Denies CP/SOB. Good UOP. Wound Assessment Wound/Incisions: positive Dressing dry and intact Review of Systems Status of ROS: 10 or more systems reviewed and unremarkable except as noted in history and below Exam Constitutional normal general appearance and no apparent distress Frail elderly female Respiratory normal respiratory effort Cardiovascular normal heart rate noted Gastrointestinal abdomen abnormal to inspection, abdomen soft to palpation, tender to palpation and distended distended abdomen but soft, minimal ttp, midline dressing intact Genitourinary taylor in place clear yellow-orange urine Extremities mild L>R Edema at ankles, mild venous reflux changes Psychiatry oriented x3 Skin skin color normal ABX Reporting Has patient been on IV antibiotics over the past 48 hours?: Yes Impression/Plan Problem List (1) Acute abdomen: Plan: 84yoF admitted with acute abdomen and significant free fluid, s/p diagnostic laparoscopy converted to exploratory laparotomy and open appendectomy on 09/10/24. POD1. Clinicall stable without ROBF. WBC normalized (11 to 8), Hgb stable, Lytes/Cr WNL. BG ranging 150ish. - continue scheduled IV tylenol and toradol with prn IV dilaudid - IS, Ambulation and to chair TID - Has no home medication, prn hydralazine for SBP >160 - Continue NGT for today and monitor for decreased distension or ROBF, protonix with NGT - IVF while NPO, prn zofran - DC Taylor - daily CBC/Chemistry - Continue zosyn x4d for purulent peritonitis (can --> to augmentin if ready for DC) - start ppx lovenox - PT/OT/SW consulted for discharge planning Dispo: continue inpatient care. PT/OT recommending SNF, patient inquiring about home with caregiver options Niecy Cortez DO, ERASTO General Surgeon, [facility]
[2024-09-11] MEDS ORDERED: BENZOCAINE SPRAY MM PRN (23:03)
[2024-09-12] MEDS: PHENOL THROAT SPRAY 177 ML MM PRN (00:26)
[2024-09-12 06:28] LABS: BASOPHILS % (AUTO) 0.3 %; EOSINOPHILS # (AUTO) 0.1 10^3/uL (0.0-0.7); EOSINOPHILS % (AUTO) 0.7 %; HCT - HEMATOCRIT 33.2 % (37.0-47.0); HGB - HEMOGLOBIN 11.6 g/dL (12.0-16.0); LYMPHOCYTES # (AUTO) 0.7 10^3/uL (1.5-3.5); LYMPHOCYTES % (AUTO) 8.8 %; MEAN CORPUSCULAR HEMOGLOBIN 31.5 pg (27.0-31.0); MEAN CORPUSCULAR HGB CONC 34.9 g/dL (32.0-36.0); MEAN CORPUSCULAR VOLUME 90.2 fL (81.0-99.0); MEAN PLATELET VOLUME 10.7 fL (7.9-10.8); MONOCYTES # (AUTO) 0.3 10^3/uL (0.0-1.0); MONOCYTES % (AUTO) 4.5 %; NEUTROPHILS # (AUTO) 6.3 10^3/uL (1.5-6.6); NEUTROPHILS % (AUTO) 85.4 %; PLT - PLATELET COUNT 160 10^3/uL (130-450); RED BLOOD COUNT 3.68 10^6/uL (4.20-5.40); RED CELL DISTRIBUTION WIDTH 13.8 % (12.0-15.0); WHITE BLOOD COUNT 7.4 x10^3/uL (4.8-10.8)
[2024-09-12 06:39] LABS: CALCIUM 9.6 mg/dL (8.5-10.3); CREATININE 1.2 mg/dL (0.6-1.3); MAGNESIUM 1.9 mg/dL (1.7-2.3); PHOSPHORUS 3.7 mg/dL (2.5-5.0); POTASSIUM 3.5 mmol/L (3.5-4.5)
[2024-09-12] MEDS ORDERED: POTASSIUM CHLORIDE INJ 40 MEQ in SODIUM CHLORIDE 0.9% 500 ML IV ONE (10:52)
[2024-09-12] MEDS: POTASSIUM CHLOR 10 MEQ/100 ML 10 MEQ/100 ML BAG IV SCH (11:05)
[2024-09-12] MEDS: hydrALAZINE INJ 20 MG/ML VIAL IVP PRN (11:22)
[2024-09-12] MEDS: LACTATED RINGERS 500 ML IV ONE (11:30)
--- NOTE | 2024-09-12 11:32 | PROVIDER PROGRESS NOTE ---
Subjective General Admit Date: 09/11/24 Procedure Date: 09/10/24 Post Op Days: 2 Procedure Performed: diagnostic laparoscopy -> exploratory laparotomy, open appendectomy Other Other Information/Narrative: HTN this AM Requiring hydralazine for the first time since surgery, o/w HDN/AF. Pain well controlled on scheduled IV tyl/toradol, no dilaudid required. Silver dressing in place at midline. NGT in place, 500cc out the last 24hrs, but still quite distended. Transient coffee ground NGT output yesterday evening seems to have resolved this AM (I had found the NGT suction setting set to MAX). She says she feels a BM coming, but she has not passed flatus yet. She wants to eat but required zofran this AM. She wants the NGT out but I am concerned about the risk of emesis and aspiration r ight now, given her distension and lack of bowel function. She was coughing overnight with some productive phlegm, but attributes it to the NGT; she is only able to pull ~300 on the IS in demonstration this AM. Has a friend visiting her this AM. Wound Assessment Wound/Incisions: positive Dressing dry and intact Review of Systems Status of ROS: 10 or more systems reviewed and unremarkable except as noted in history and below Exam Constitutional normal general appearance and no apparent distress Frail elderly female HENMT head/scalp atraumatic Eyes EOMs intact bilaterally and conjunctivae normal Neck/C-Spine visual inspection normal Respiratory normal respiratory effort Cardiovascular normal heart rate noted Gastrointestinal abdomen abnormal to inspection, abdomen soft to palpation, nontender to palpation and distended distended abdomen but soft, midline dressing intact Genitourinary taylor in place clear yellow-orange urine Extremities no deformity mild L>R Edema at ankles, mild venous reflux changes Psychiatry oriented x3 Skin skin color normal ABX Reporting Has patient been on IV antibiotics over the past 48 hours?: Yes Impression/Plan Problem List (1) Acute abdomen: Plan: 84yoF admitted with acute abdomen and significant free fluid, s/p diagnostic laparoscopy converted to exploratory laparotomy and open appendectomy on 09/10/24. POD2. Clinically stable overall without leukocytosis, but without ROBF yet - will eval with AXR today. EASTON with Cr up to 1.2 today - bolus 500cc LR. Low lung volumes on IS with reported productive coughing - will check CXR this AM. Required Hydralazine x1 for HTN. - continue scheduled IV tylenol and toradol with prn IV dilaudid - IS, Ambulation and to chair TID - Has no home medication, prn hydralazine for SBP >160 - Continue NGT for today, pending AXR and monitor for decreased distension or ROBF, protonix with NGT - IVF while NPO, prn zofran - daily CBC/Chemistry - Continue zosyn x4d for purulent peritonitis (can --> to augmentin if ready for DC) - ppx lovenox - PT/OT/SW following for discharge planning - rec SNF Dispo: continue inpatient care. Niecy Cortez DO, FACS General Surgeon, Cha (2) HTN (hypertension): (3) EASTON (acute kidney injury):
[2024-09-12] MEDS: DEXTROSE 5%-0.45% NACL 1,000 ML IV SCH (13:53)
--- NOTE | 2024-09-12 14:43 | XRAY Report ---
PROCEDURE: XR Abdomen Acute INDICATIONS: assess for SBO, NGT in place TECHNIQUE: 2 views of the abdomen were acquired. COMPARISON: CT abdomen pelvis 09/10/2027 FINDINGS: Surgical changes and devices: Nasogastric tube present. The distal end is well below the diaphragm. The sidehole is probably in the mid stomach. Midline surgical clips are present. Chest: Mild diffuse thickening of interstitial markings in the right perihilar region. Probable trace bilateral pleural effusion.. Heart size is normal. No pneumoperitoneum. Bowel: No pneumoperitoneum. The bowel gas pattern is normal. Stool load within normal limits. Soft tissues: No masses; visualized solid organ contours appear normal in size. No suspicious abdom inal calcifications. Trace subcutaneous gas bilaterally, probably prior port sites. Bones: No suspicious bony abnormalities. IMPRESSION: Satisfactory placement of NG tube. Diffuse interstitial thickening in the right perihilar region may be infectious or inflammatory. Nonobstructive small bowel gas pattern. Midline surgical migue. Reviewed by: Genoveva Cano MD on 09/12/2024 2:41 PM PST Approved by: Genoveva Cano MD on 09/12/2024 2:41 PM PST Station ID: [id number]
[2024-09-13 05:46] LABS: BASOPHILS # (AUTO) 0.1 10^3/uL (0.0-0.1); BASOPHILS % (AUTO) 0.8 %; EOSINOPHILS # (AUTO) 0.3 10^3/uL (0.0-0.7); EOSINOPHILS % (AUTO) 3.8 %; HCT - HEMATOCRIT 32.6 % (37.0-47.0); HGB - HEMOGLOBIN 10.9 g/dL (12.0-16.0); LYMPHOCYTES # (AUTO) 0.7 10^3/uL (1.5-3.5); LYMPHOCYTES % (AUTO) 11.2 %; MEAN CORPUSCULAR HEMOGLOBIN 30.4 pg (27.0-31.0); MEAN CORPUSCULAR HGB CONC 33.4 g/dL (32.0-36.0); MEAN CORPUSCULAR VOLUME 91.1 fL (81.0-99.0); MEAN PLATELET VOLUME 10.6 fL (7.9-10.8); MONOCYTES # (AUTO) 0.3 10^3/uL (0.0-1.0); MONOCYTES % (AUTO) 5.2 %; NEUTROPHILS # (AUTO) 5.1 10^3/uL (1.5-6.6); NEUTROPHILS % (AUTO) 78.5 %; PLT - PLATELET COUNT 163 10^3/uL (130-450); RED BLOOD COUNT 3.58 10^6/uL (4.20-5.40); RED CELL DISTRIBUTION WIDTH 13.8 % (12.0-15.0); WHITE BLOOD COUNT 6.5 x10^3/uL (4.8-10.8)
[2024-09-13 06:10] LABS: CALCIUM 9.2 mg/dL (8.5-10.3); MAGNESIUM 1.9 mg/dL (1.7-2.3); PHOSPHORUS 1.8 mg/dL (2.5-5.0)
[2024-09-13] MEDS: BENZONATATE 100 MG CAPSULE PO PRN (08:28)
--- NOTE | 2024-09-13 08:42 | PROVIDER PROGRESS NOTE ---
Subjective Subjective Subjective: appears well. alert. on the phone. nurse states she is refusing iv kcl Current Medications Current Medications Current Medications: Current Medications Generic Name Dose Route Start Last Admin Trade Name Freq PRN Reason Stop Dose Admin Benzonatate 100 mg 09/11/24 23:03 09/13/24 08:28 Benzonatate 100 Mg Capsule PO 100 mg Q6H PRN Administration Cough Docusate Sodium 250 - 500 mg 09/13/24 09:00 Docusate Sodium 250 Mg Capsule PO DAILY JAYLA Enoxaparin Sodium 40 mg 09/11/24 10:00 09/13/24 08:27 Enoxaparin 40 Mg/0.4 Ml Syringe SUBQ 40 mg DAILY JAYLA Administration Hydralazine HCl 10 mg 09/11/24 00:19 09/12/24 11:22 Hydralazine Inj 20 Mg/Ml Vial IVP 10 mg DAILY PRN Administration SBP> or= 160 OR DBP> or= 110 Hydromorphone HCl 0.5 mg 09/10/24 23:57 Hydromorphone 0.5 Mg/0.5 Ml Syringe IVP Q2H PRN Severe Pain (Level 7-10) Piperacillin Sod/Tazobactam 100 mls @ 25 mls/hr 09/11/24 01:00 09/13/24 08:28 Sod 3.375 gm/ Sodium Chloride IV 25 mls/hr Q8H JAYLA Administration Acetaminophen 1,000 mg in 100 mls @ 400 mls/hr 09/11/24 00:00 09/13/24 06:11 Acetaminophen IV Not Given Q6HR JAYLA Potassium Chloride/Dextrose/Sod Cl 1,000 mls @ 75 mls/hr 09/13/24 09:00 D5.45ns W/20 Meq Kcl IV .[id number] JAYLA Potassium Chloride 10 meq in 100 mls @ 100 mls/hr 09/13/24 09:00 Potassium Chloride IV 09/13/24 12:59 Q1H JAYLA Potassium Phosphate 15 mmol/ 255 mls @ 42.5 mls/hr 09/13/24 08:10 Sodium Chloride IV 09/13/24 14:09 ONCE ONE Ketorolac Tromethamine 15 mg 09/10/24 23:45 09/13/24 06:08 Ketorolac 15 Mg/Ml Vial IVP 09/15/24 23:44 15 mg Q6H JAYLA Administration Ondansetron HCl 4 mg 09/10/24 23:57 09/12/24 12:27 Ondansetron 4 Mg/2 Ml Vial IVP 4 mg Q6H PRN Administration Nausea / Vomiting Pantoprazole Sodium 40 mg 09/11/24 07:00 09/13/24 06:08 Pantoprazole 40 Mg Vial IVP 40 mg QDAC JAYLA Administration Phenol/Menthol 2 sprays 09/11/24 23:59 09/13/24 03:23 Phenol Throat [place] 177 Ml MM 2 sprays Q2HR PRN Administration Throat Pain Polyethylene Glycol 17 gm 09/13/24 09:00 Polyethylene Glycol 3350 17 Gm Packet PO DAILY JAYLA Potassium Chloride 20 meq 09/13/24 09:00 Potassium Chloride 20 Meq Tablet PO BID JAYLA Sodium Chloride 10 ml 09/11/24 01:00 09/13/24 00:20 Sodium Chloride Flush 0.9% 10 Ml Syringe IVP 10 ml 0100,0900,1700 JAYLA Administration Sodium Chloride 10 ml 09/10/24 23:57 Sodium Chloride Flush 0.9% 10 Ml Syringe IVP PRN PRN NEEDED PER PROVIDER ORDERS Objective Vital Signs/Intake & Output Vital Signs: Vital Signs x48h Temp Pulse Resp BP Pulse Ox 09/13/24 07:30 36.5 C 57 L 16 141/66 H 95 09/13/24 03:23 128/51 L 09/13/24 01:00 36.5 C 74 18 163/73 H 96 Intake & Output: Intake & Output 09/11/24 09/12/24 09/13/24 09/14/24 05:59 05:59 05:59 05:59 Intake Total 2225 / 2225 4540 / 4540 4705 / 4705 Output Total 670 / 670 1425 / 1425 1550 / 1550 Balance 1555 / 1555 3115 / 3115 3155 / 3155 Weight (kg) 58.967 kg 59 kg Objective General Appearance: positive No acute distress and Alert Respiratory: positive No respiratory distress Abdomen: positive No distention Neurologic/Psychiatric: positive Other (on the phone. ) Lab Results 09/13/24 05:33 09/13/24 05:33 Other Labs: Lab Results x24hrs 09/13/24 Range/Units 05:33 WBC 6.5 (4.8-10.8) x10^3/uL RBC 3.58 L (4.20-5.40) 10^6/uL Hgb 10.9 L (12.0-16.0) g/dL Hct 32.6 L (37.0-47.0) % MCV 91.1 (81.0-99.0) fL MCH 30.4 (27.0-31.0) pg MCHC 33.4 (32.0-36.0) g/dL RDW 13.8 (12.0-15.0) % Plt Count 163 (130-450) 10^3/uL MPV 10.6 (7.9-10.8) fL Neut # (Auto) 5.1 (1.5-6.6) 10^3/uL Lymph # (Auto) 0.7 L (1.5-3.5) 10^3/uL [place] # (Auto) 0.3 (0.0-1.0) 10^3/uL Eos # (Auto) 0.3 (0.0-0.7) 10^3/uL Baso # (Auto) 0.1 (0.0-0.1) 10^3/uL Absolute Nucleated RBC 0.00 x10^3/uL Nucleated RBC % 0.0 /100WBC Sodium 138 (135-145) mmol/L Potassium 3.0 L (3.5-4.5) mmol/L Chloride 108 (101-111) mmol/L Carbon Dioxide 27 (21-32) mmol/L Anion Gap 3.0 L (6-13) BUN 24 H (6-20) mg/dL Creatinine 1.0 (0.6-1.3) mg/dL Estimated GFR (MDRD) 53 L (>89) Glucose 138 H (74-104) mg/dL Calcium 9.2 (8.5-10.3) mg/dL Phosphorus 1.8 L (2.5-5.0) mg/dL Magnesium 1.9 (1.7-2.3) mg/dL Assessment/Plan Problem List (1) Acute abdomen: Impression: ruptured appendix. refusing iv kcl. will order po and change ivf to include k. on the phone at this time and is not pausing her conversation to speak with me. will complete examine later (2) HTN (hypertension): (3) EASTON (acute kidney injury):
[2024-09-13] MEDS: polyethylene glycoL 3350 17 GM PACKET PO SCH (08:54)
[2024-09-13] MEDS: POTASSIUM PHOSPHATE 15 MMOL in SODIUM CHLORIDE 0.9% 250 ML IV ONE (08:55)
[2024-09-13] MEDS: POTASSIUM CHLORIDE 20 MEQ TABLET PO SCH (08:55)
[2024-09-13] MEDS: DOCUSATE SODIUM 250 MG CAPSULE PO SCH (08:55)
[2024-09-13] MEDS: POTASSIUM CHLOR 10 MEQ/100 ML 10 MEQ/100 ML BAG IV SCH (10:40)
[2024-09-13] MEDS: D5.45NS W/20 MEQ KCL 1,000 ML IV SCH (16:23)
[2024-09-14 06:09] LABS: BASOPHILS % (AUTO) 0.7 %; EOSINOPHILS # (AUTO) 0.4 10^3/uL (0.0-0.7); EOSINOPHILS % (AUTO) 8.1 %; HCT - HEMATOCRIT 36.4 % (37.0-47.0); HGB - HEMOGLOBIN 12.7 g/dL (12.0-16.0); LYMPHOCYTES # (AUTO) 1.1 10^3/uL (1.5-3.5); LYMPHOCYTES % (AUTO) 20.2 %; MEAN CORPUSCULAR HEMOGLOBIN 31.5 pg (27.0-31.0); MEAN CORPUSCULAR HGB CONC 34.9 g/dL (32.0-36.0); MEAN CORPUSCULAR VOLUME 90.3 fL (81.0-99.0); MEAN PLATELET VOLUME 10.2 fL (7.9-10.8); MONOCYTES # (AUTO) 0.4 10^3/uL (0.0-1.0); MONOCYTES % (AUTO) 7.7 %; NEUTROPHILS # (AUTO) 3.3 10^3/uL (1.5-6.6); PLT - PLATELET COUNT 205 10^3/uL (130-450); RED BLOOD COUNT 4.03 10^6/uL (4.20-5.40); RED CELL DISTRIBUTION WIDTH 14.1 % (12.0-15.0); WHITE BLOOD COUNT 5.3 x10^3/uL (4.8-10.8)
[2024-09-14 06:20] LABS: CALCIUM 9.7 mg/dL (8.5-10.3); CREATININE 0.8 mg/dL (0.6-1.3); MAGNESIUM 1.9 mg/dL (1.7-2.3); PHOSPHORUS 1.7 mg/dL (2.5-5.0); POTASSIUM 3.6 mmol/L (3.5-4.5)
--- NOTE | 2024-09-14 14:27 | PROVIDER PROGRESS NOTE ---
Subjective Subjective Pt reports feeling: Improved Subjective: some hiccups and burping. tolerating diet better this afternoon. denies nausea. still not able to ambulate outside of her room Current Medications Current Medications Current Medications: Current Medications Generic Name Dose Route Start Last Admin Trade Name Freq PRN Reason Stop Dose Admin Benzonatate 100 mg 09/11/24 23:03 09/13/24 08:28 Benzonatate 100 Mg Capsule PO 100 mg Q6H PRN Administration Cough Docusate Sodium 250 - 500 mg 09/13/24 09:00 09/14/24 08:55 Docusate Sodium 250 Mg Capsule PO 250 mg DAILY JAYLA Administration Enoxaparin Sodium 40 mg 09/11/24 10:00 09/14/24 08:55 Enoxaparin 40 Mg/0.4 Ml Syringe SUBQ 40 mg DAILY JAYLA Administration Hydralazine HCl 10 mg 09/11/24 00:19 09/14/24 10:54 Hydralazine Inj 20 Mg/Ml Vial IVP 10 mg DAILY PRN Administration SBP> or= 160 OR DBP> or= 110 Hydromorphone HCl 0.5 mg 09/10/24 23:57 Hydromorphone 0.5 Mg/0.5 Ml Syringe IVP Q2H PRN Severe Pain (Level 7-10) Piperacillin Sod/Tazobactam 100 mls @ 25 mls/hr 09/11/24 01:00 09/14/24 13:12 Sod 3.375 gm/ Sodium Chloride IV Infused Q8H JAYLA Infusion Acetaminophen 1,000 mg in 100 mls @ 400 mls/hr 09/11/24 00:00 09/14/24 13:34 Acetaminophen IV Not Given Q6HR [facility] Ketorolac Tromethamine 15 mg 09/10/24 23:45 09/14/24 11:53 Ketorolac 15 Mg/Ml Vial IVP 09/15/24 23:44 15 mg Q6H JAYLA Administration Ondansetron HCl 4 mg 09/10/24 23:57 09/12/24 12:27 Ondansetron 4 Mg/2 Ml Vial IVP 4 mg Q6H PRN Administration Nausea / Vomiting Pantoprazole Sodium 40 mg 09/11/24 07:00 09/14/24 06:07 Pantoprazole 40 Mg Vial IVP 40 mg QDAC JAYLA Administration Phenol/Menthol 2 sprays 09/11/24 23:59 09/13/24 18:34 Phenol Throat [place] 177 Ml MM 2 sprays Q2HR PRN Administration Throat Pain Polyethylene Glycol 17 gm 09/13/24 09:00 09/14/24 08:59 Polyethylene Glycol 3350 17 Gm Packet PO Not Given DAILY JAYLA Potassium Chloride 20 meq 09/13/24 09:00 09/14/24 08:55 Potassium Chloride 20 Meq Tablet PO 20 meq BID JAYLA Administration Sodium Chloride 10 ml 09/11/24 01:00 09/14/24 08:59 Sodium Chloride Flush 0.9% 10 Ml Syringe IVP 10 ml 0100,0900,1700 JAYLA Administration Sodium Chloride 10 ml 09/10/24 23:57 Sodium Chloride Flush 0.9% 10 Ml Syringe IVP PRN PRN NEEDED PER PROVIDER ORDERS Objective Vital Signs/Intake & Output Vital Signs: Vital Signs x48h Temp Pulse Resp BP BP Pulse Ox 09/14/24 11:26 140/70 H 09/14/24 11:07 146/75 H 09/14/24 10:54 165/80 H 09/14/24 08:30 36.5 C 69 18 180/83 H 97 Intake & Output: Intake & Output 09/12/24 09/13/24 09/14/24 09/15/24 05:59 05:59 05:59 05:59 Intake Total 4540 / 4540 4705 / 4705 5145 / 5145 580 / 580 Output Total 1425 / 1425 1550 / 1550 Balance 3115 / 3115 3155 / 3155 5145 / 5145 580 / 580 Weight (kg) 59 kg Objective General Appearance: positive No acute distress and Alert Respiratory: positive No respiratory distress Abdomen: positive Other (mild to moderate distension. slightly improved. dressing c/d/i no erythema) Neurologic/Psychiatric: positive Oriented x3 Lab Results 09/14/24 05:49 09/14/24 05:49 Other Labs: Lab Results x24hrs 09/14/24 Range/Units 05:49 WBC 5.3 (4.8-10.8) x10^3/uL RBC 4.03 L (4.20-5.40) 10^6/uL Hgb 12.7 (12.0-16.0) g/dL Hct 36.4 L (37.0-47.0) % MCV 90.3 (81.0-99.0) fL MCH 31.5 H (27.0-31.0) pg MCHC 34.9 (32.0-36.0) g/dL RDW 14.1 (12.0-15.0) % Plt Count 205 (130-450) 10^3/uL MPV 10.2 (7.9-10.8) fL Neut # (Auto) 3.3 (1.5-6.6) 10^3/uL Lymph # (Auto) 1.1 L (1.5-3.5) 10^3/uL [place] # (Auto) 0.4 (0.0-1.0) 10^3/uL Eos # (Auto) 0.4 (0.0-0.7) 10^3/uL Baso # (Auto) 0.0 (0.0-0.1) 10^3/uL Absolute Nucleated RBC 0.00 x10^3/uL Nucleated RBC % 0.0 /100WBC Sodium 139 (135-145) mmol/L Potassium 3.6 (3.5-4.5) mmol/L Chloride 110 (101-111) mmol/L Carbon Dioxide 26 (21-32) mmol/L Anion Gap 3.0 L (6-13) BUN 15 (6-20) mg/dL Creatinine 0.8 (0.6-1.3) mg/dL Estimated GFR (MDRD) 68 L (>89) Glucose 132 H (74-104) mg/dL Calcium 9.7 (8.5-10.3) mg/dL Phosphorus 1.7 L (2.5-5.0) mg/dL Magnesium 1.9 (1.7-2.3) mg/dL Assessment/Plan Problem List (1) Acute abdomen: Impression: ruptured appendix with significant inflammatory change of the abdomen. slowly improving. still weak and unsteady with ambulation. home when abdomen less distended and able to ambulate safely. she lives alone; however, has lots of support. she is arranging for her own walker and commode. home likely monday or when her ambulation/ mobility is improved regular diet as tolerated. (2) HTN (hypertension): (3) EASTON (acute kidney injury):
[2024-09-14] MEDS: hydrALAZINE INJ 20 MG/ML VIAL IVP PRN (15:57)
--- NOTE | 2024-09-15 14:35 | PROVIDER PROGRESS NOTE ---
Subjective Subjective Pt reports feeling: Improved Subjective: feeling better. still unsteady with walking. open to short term rehab/ snf Current Medications Current Medications Current Medications: Current Medications Generic Name Dose Route Start Last Admin Trade Name Freq PRN Reason Stop Dose Admin Acetaminophen 650 mg 09/15/24 14:28 Acetaminophen 325 Mg Tablet PO Q4HR PRN Pain or Fever > 38C (100.4F) Benzonatate 100 mg 09/11/24 23:03 09/13/24 08:28 Benzonatate 100 Mg Capsule PO 100 mg Q6H PRN Administration Cough Docusate Sodium 250 - 500 mg 09/13/24 09:00 09/15/24 08:04 Docusate Sodium 250 Mg Capsule PO 500 mg DAILY JAYLA Administration Enoxaparin Sodium 40 mg 09/11/24 10:00 09/15/24 08:05 Enoxaparin 40 Mg/0.4 Ml Syringe SUBQ 40 mg DAILY JAYLA Administration Hydralazine HCl 10 mg 09/14/24 15:43 09/15/24 08:06 Hydralazine Inj 20 Mg/Ml Vial IVP 10 mg Q6H PRN Administration Hypertensive Emergency Hydromorphone HCl 0.5 mg 09/10/24 23:57 Hydromorphone 0.5 Mg/0.5 Ml Syringe IVP Q2H PRN Severe Pain (Level 7-10) Piperacillin Sod/Tazobactam 100 mls @ 25 mls/hr 09/11/24 01:00 09/15/24 12:09 Sod 3.375 gm/ Sodium Chloride IV Infused Q8H [facility] Infusion Lisinopril 10 mg 09/15/24 09:00 Lisinopril 5 Mg Tablet PO DAILY [facility] Ondansetron HCl 4 mg 09/10/24 23:57 09/15/24 08:26 Ondansetron 4 Mg/2 Ml Vial IVP 4 mg Q6H PRN Administration Nausea / Vomiting Phenol/Menthol 2 sprays 09/11/24 23:59 09/13/24 18:34 Phenol Throat [place] 177 Ml MM 2 sprays Q2HR PRN Administration Throat Pain Polyethylene Glycol 17 gm 09/13/24 09:00 09/15/24 08:06 Polyethylene Glycol 3350 17 Gm Packet PO Not Given DAILY [facility] Sodium Chloride 10 ml 09/11/24 01:00 09/15/24 08:05 Sodium Chloride Flush 0.9% 10 Ml Syringe IVP 10 ml 0100,0900,1700 JAYLA Administration Sodium Chloride 10 ml 09/10/24 23:57 Sodium Chloride Flush 0.9% 10 Ml Syringe IVP PRN PRN NEEDED PER PROVIDER ORDERS Objective Vital Signs/Intake & Output Reviewed Vital Signs: Yes Vital Signs: Vital Signs x48h Temp Pulse Resp BP BP BP Pulse Ox 09/15/24 09:33 153/67 H 09/15/24 08:35 153/97 H 09/15/24 08:23 36.7 C 80 18 165/79 H 96 09/15/24 08:06 165/79 H Intake & Output: Intake & Output 09/13/24 09/14/24 09/15/24 09/16/24 05:59 05:59 05:59 05:59 Intake Total 4705 / 4705 5145 / 5145 1988 470 / 470 Output Total 1550 / 1550 Balance 3155 / 3155 5145 / 5145 1988 470 / 470 Objective General Appearance: positive No acute distress and Alert Respiratory: positive No respiratory distress Abdomen: positive Other (mild distension. improved. dressing c/d/i. no erythema) Neurologic/Psychiatric: positive Oriented x3 Lab Results 09/14/24 05:49 09/14/24 05:49 Assessment/Plan Problem List (1) Acute abdomen: Impression: improving daily. still not ambulating safely or well enough to go home alone. ? snf/ rehab. she know thinks she might need this for a short time. d/ iv tylenol and iv toradol add lisinopril. she has not seen a regular dr for some time and has not been on a bp pill before. she states her bp is usually high. she has required prn hydralazine for days to keep her bp reasonable d/c planning (2) HTN (hypertension): (3) EASTON (acute kidney injury):
[2024-09-15] MEDS: lisinopriL 5 MG TABLET PO SCH (14:55)
--- NOTE | 2024-09-16 07:33 | HISTORY & PHYSICAL EXAMINATION ---
Chief Complaint Chief Complaint Chief Complaint: s/p appendectomy History of Present Illness Admitted From Admitted From:: ED History Obtained From Records Reviewed: notes from this hospitalization History obtained from: Patient History of Present Illness HPI Comment/Other: 84-year-old female who lives alone and has not seen a doctor in many years presented to the emergency department on 08/2624 with complaints of abdominal pain for a period of 2 days. She was taken to the operating room for diagnostic laparoscopy which proceeded to exploratory laparotomy after findings of purulent peritonitis. The source was determined to be a perforated tip appendicitis. She had an open appendectomy performed. Postoperatively she had an NG tube and it was several days before bowel function returned. But she has since been able to tolerate a regular diet and had a bowel movement this morning. Dr. Alfonso has asked medicine service to consult on the patient regarding her newly diagnosed hypertension and assistance with transfer to [facility]. The patient is doing well. 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 Meds/Allgy Home Medications Ambulatory Orders Medication Instructions Recorded Confirmed acetaminophen 500 mg tablet 500 mg PO Q4H PRN pain 09/11/24 09/11/24 Allergies Allergies Allergy/AdvReac Type Severity Reaction Status Date / Time No Known Drug Allergies Allergy Verified 09/10/24 15:36 [facility] Medical History Medical History (Updated 09/16/24 @ 08:20 by GABRIELLE Jaimes) Macular degeneration of left eye Surgical History Surgical History (Updated 09/10/24 @ 15:35 by Adeola Rivera, RN, BSN) Hx of hysterectomy Social History Social History (Updated 09/10/24 @ 19:11 by Niecy Cortez DO) Smoking Status: Former smoker If you are a former smoker, when did you quit? (Date/Year): 1979 Second hand tobacco smoke exposure: No Do you dip or chew tobacco?: No Do you vape?: No Living arrangement: At home Marital Status: Living Condition: Alone Support Person: Yes Relationship: Living Situation Details: neighbors are support system Level: Independent Home Mobility Equipment: Cane Do you feel safe in your home environment?: Yes Suffered physical, verbal, emotional, or financial abuse?: No ETOH Use: None Substance Use: denies use Are you sexually active?: No POLST Patient has POLST: No POLST Status: Full Code Review of Systems Status of ROS: 10 or more systems reviewed and unremarkable except as noted in history and below Constitutional Reports: Fatigue; Denies: Fever or Chills Eyes Reports: Blurry vision (chronic macular degen) Ears, nose, mouth, and throat Denies: Tinnitus, Change in hearing or Throat pain Cardiovascular Reports: Decreased exercise tolerance; Denies: Irregular heart rate, chest pain, palpitations or shortness of breath with exertion Respiratory Denies: Shortness of breath Gastrointestinal Reports: Nausea and other (appetite is improving); Denies: Abdominal distention or Vomiting Integumentary/Breast Denies: Rash Neurological Denies: Headache Endocrine Reports: Fatigue Hematologic/Lymphatic Denies: Anemia Prior Level of Functionality: has neighbors who are her support system. She does not drive due to her vision. struggles also with motion sickness Exam Constitutional normal general appearance and no apparent distress HENMT normocephalic Eyes PERRL, conjunctivae normal and visual acuity abnormal Neck/C-Spine visual inspection normal Lymph no lymphadenopathy noted Respiratory breath sounds equal bilaterally, normal respiratory effort and clear to auscultation bilaterally Cardiovascular normal heart rate noted Gastrointestinal abdomen normal to inspection midline silver impregnated dressing in place, will leave this in place until POD #7. abdomen with mild distension and appropriately tender. 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 I will send repeat CBC this morning. She has completed 4 days of antibiotics after surgical source control. Zosyn was stopped this morning. She is having bowel movements and tolerating a regular diet. discussed with Dr Alfonso this AM. Hospitalist service will assume care of this patient. Her acute surgical issues have resolved. Physical therapy evaluation is indicative of the need for [facility] facility for rehab. I have consulted social work this morning and asked them to assist in [facility] placement. [place] I will need to complete advanced care planning discussion with this patient. She is medically clear for discharge today. (2) HTN (hypertension): Plan: Prior to this hospitalization she does not have any diagnosis of hypertension. She was started on lisinopril 10 mg a day by surgery. I will increase this to 20 mg a day. please see blood pressure readings below. Selected Entries 09/15/24 14:33 09/15/24 15:02 09/15/24 16:00 Pulse Rate [Brachial] 85 Pulse Rate [Monitoring electrodes] Blood Pressure 182/108 H 145/63 H Blood Pressure [Left Brachial artery] 171/84 H Blood Pressure [Right Brachial artery] 09/15/24 16:15 09/15/24 23:39 09/16/24 05:50 Pulse Rate [Brachial] 86 80 Pulse Rate [Monitoring electrodes] 82 Blood Pressure Blood Pressure [Left Brachial artery] Blood Pressure [Right Brachial artery] 155/74 H 145/68 H 169/86 H Qualifiers: Hypertension type: primary hypertension Qualified Code(s): I10 - Essential (primary) hypertension (3) E[place] (acute kidney injury): Plan: Acute kidney injury likely related to intra-abdominal sepsis which has resolved. She has not had recheck of her renal function in several days. I have sent labs this morning. Plan I have spent 76 minutes in the care of this patient today. This includes time [id number], review and ordering of diagnostic imaging and laboratory studies and consultation with other providers.. Monitoring the patient's signs symptoms, evaluation of medication effectiveness and patient's response to treatment. Lab Results Lab results reviewed: Yes 09/16/24 07:55 09/16/24 07:55
--- NOTE | 2024-09-16 07:38 | PROVIDER PROGRESS NOTE ---
Subjective General Admit Date: 09/11/24 Procedure Date: 09/10/24 Post Op Days: 6 Procedure Performed: diagnostic laparoscopy -> exploratory laparotomy, open appendectomy Other Other Information/Narrative: Patient continues to deny pain and refuses pain medication. She is ambulating in room with PT and continues to need assistance. She is tolerating a regular diet and has had a BM. +void. No fevers, chills, chest pain. Patient would like to go home but knows she needs help getting her strength back and is willing to go to rehab. She lives alone and has neighbors who are good friends, one is a retired RN, 89y/o. Wound Assessment Wound/Incisions: positive Dressing dry and intact Exam Exam Gen: NAD, alert and oriented CV:RRR Pulm: non labored, on RA, pulling about 500mL on IS Abd: soft, mildly distended, appropriate incisional ttp, no r/g. Incision is c/d/i Ext: no c/c/e ABX Reporting Has patient been on IV antibiotics over the past 48 hours?: Yes Impression/Plan Problem List (1) Acute abdomen: Plan: perforated appendicitis, s/p ex lap and open appenectomy on 09/10 - POD#6 - leukocytosis has resolved - zosyn stopped this AM (2) HTN (hypertension): Plan: started on lisinopril this hospital stay - medicine consulted (they will assume primary) today. Appreciate their care and assistance with this patient. She does not see PCP on regular basis (3) EASTON (acute kidney injury): Plan: resolved Plan consult medicine discharge planning. PT recommending rehab vs snf. Stable for discharge from surgery standpoint when appropriate discharge plan in place.
[2024-09-16 08:00] LABS: BASOPHILS # (AUTO) 0.1 10^3/uL (0.0-0.1); EOSINOPHILS # (AUTO) 0.4 10^3/uL (0.0-0.7); EOSINOPHILS % (AUTO) 5.8 %; HGB - HEMOGLOBIN 12.8 g/dL (12.0-16.0); MEAN CORPUSCULAR HEMOGLOBIN 30.7 pg (27.0-31.0); MEAN CORPUSCULAR HGB CONC 33.7 g/dL (32.0-36.0); MEAN CORPUSCULAR VOLUME 91.1 fL (81.0-99.0); MEAN PLATELET VOLUME 9.5 fL (7.9-10.8); MONOCYTES # (AUTO) 0.6 10^3/uL (0.0-1.0); MONOCYTES % (AUTO) 8.9 %; NEUTROPHILS # (AUTO) 3.9 10^3/uL (1.5-6.6); NEUTROPHILS % (AUTO) 63.4 %; PLT - PLATELET COUNT 260 10^3/uL (130-450); RED BLOOD COUNT 4.17 10^6/uL (4.20-5.40); RED CELL DISTRIBUTION WIDTH 14.5 % (12.0-15.0); WHITE BLOOD COUNT 6.2 x10^3/uL (4.8-10.8)
[2024-09-16] MEDS: lisinopriL 20 MG TABLET PO SCH (08:06)
[2024-09-16 08:19] LABS: CREATININE 0.8 mg/dL (0.6-1.3); POTASSIUM 4.2 mmol/L (3.5-4.5)
[2024-09-16 14:48] LABS: ESTIMATED AVERAGE GLUCOSE 117 mg/dL (70-100); HEMOGLOBIN A1c% 5.7 % (4.27-6.07)
--- NOTE | 2024-09-16 16:35 | ADVANCE CARE PLANNING NOTE ---
Advance Care Planning Planning Encounter Date: 09/16/24 Time: 14:00 Purpose: Dorys Rao is alone in this world. What to do for her in a medical emergency would be very unclear. Parties in Attendance: Patient and Mari Pagan PA-C Decisional Capacity of the Patient: alert and oriented with some insight into her situation, but difficulty facing reality. Diagnosis for Encounter (1) Acute abdomen: (2) HTN (hypertension): Qualifiers: Hypertension type: primary hypertension Qualified Code(s): I10 - Essential (primary) hypertension (3) EASTON (acute kidney injury): Encounter Subjective/Patient's Story: Dorys Rao has been a for many years. She lost her many years ago and has been alone in this world since. Her only son passed in 1984. [place] She also has friends in the community but does not have any living relatives that can make decisions for her. When we initially start this conversation she guides the conversation away from the medical facts of what is happening with her. She prefers to talk about logistics regarding what will happen when she is gone but does not want to discuss the realities of her end-of-life. She wishes for me to record all of the people that will take care of things when she is gone but she has a hard time identifying people that can help with the process of her passing. She does have many close friends. She has issues with her vision but is overall healthy and able to meet her own needs. She has neighbors that help her get groceries and get her to medical appointments but otherwise is quite independent. This acute health event has made her realize that she cannot continue to be completely independent. She will be gong to rehab and then eventually home again. Objective/Medical Story: Underwent exploratory laparotomy and open appendectomy, now postop day 6. Is needing SNF for rehab. Otherwise her chronic medical conditions are few. She has undiagnosed and untreated hypertension. We have started her on treatment for this while she is here in the hospital. She relates to me that Dr Norris has been her doctor, but she does not see him often. She wishes to be realistic about her end-of-life. And for that reason she recognizes the need to have minimal intervention Goals of Care: She is a person of sari. She identifies as [employer]. She wishes to have a POLST that shows DNR DNI. She wishes for all medical interventions to be undertaken within reason. She lists her surrogate decision maker as Tanisha Rodriguez this is a close friend. I have listed her contact information on Dorys Rao's POLST per her r equest. Her second surrogate decision maker would be another good friend Adriana Carlos Manuel. Also listed on Dorys Rao's POLST. Plan: Dorys Rao is alone in this world, as such she wishes for us to document those around her who will have involvement in the end of her affairs. Book keeper: Sharon Thacker [phone] Manger of her business: Az Shannan [phone] Prospective buyer internship of her business: Griffin and Carli Abraham. Neighbors: Cathy Quezada [phone] Dorie and Patrick Badillo [phone] Friends: (most at [employer] in [place]) Nathaniel Balderas [phone] Isabell Cabrales [phone] Friends who will take her cat Hakeem Jennings and Jeovanny Vila [phone] Code Status: Do Not Attempt Resuscitation Time spent on advance care plannin min.
--- NOTE | 2024-09-17 07:33 | PROVIDER PROGRESS NOTE ---
Subjective General Admit Date: 09/11/24 Procedure Date: 09/10/24 Post Op Days: 7 Procedure Performed: diagnostic laparoscopy -> exploratory laparotomy, open appendectomy Other Other Information/Narrative: Patient denies pain. Tolerating diet. Working with PT and using IS. No acute events in last 24 hours. Still sad she isn't strong enough to go home, but willing to work at rehab to improve as quickly as possible. Wound Assessment Wound/Incisions: positive Dressing dry and intact Exam Exam Gen: NAD, alert and oriented CV:RRR Pulm: non labored, on RA, pulling about 500mL on IS Abd: soft, ND, appropriate incisional ttp, no r/g. Incision is c/d/i Ext: no c/c/e Impression/Plan Problem List (1) Acute abdomen: Plan: perforated appendicitis, s/p ex lap and open appenectomy on 09/10 - POD#7 - leukocytosis has resolved - zosyn stopped 09/16 (2) HTN (hypertension): Plan: started on lisinopril this hospital stay - medicine consulted (they have assumed primary). Appreciate their care and assistance with this patient. She does not see PCP on regular basis Qualifiers: Hypertension type: primary hypertension Qualified Code(s): I10 - Essential (primary) hypertension (3) EASTON (acute kidney injury): Plan: resolved Plan Appreciate input and care from hospitalist team discharge planning. PT recommending rehab vs snf. [facility] Stable for discharge from surgery standpoint when appropriate discharge plan in place. f/u with Dr. Cortez on 09/23 at 10:45.
[2024-09-17 07:55] VITALS: TEMP 97.9; O2SAT 96
[2024-09-17] MEDS: ACETAMINOPHEN 325 MG TABLET PO PRN (08:10)
--- NOTE | 2024-09-17 13:28 | Discharge Summary ---
"Discharge Summary Admit Date: 09/10/24 Discharge Date: 09/17/24 Discharging Provider: Mari Pagan PA-C Code Status: Do Not Attempt Resuscitation DIAGNOSES Discharge Diagnoses with Status of Each Condition: Acute abdomen, status post appendectomy. Hypertension, treated Acute kidney injury, resolved. 1.4 cm indeterminate liver lesion, needs outpatient follow-up. Likely hemangioma. HPI History of Present Illness: 84yoF began having right sided abdominal pain on Monday (2 days ago), ate some left overs the day before and thought it was food poisoning, but pain progressed, associated with nausea, anorexia. Denies emesis, had normal BM this AM, no blood in stool. Denies similar prior pain in the past. Denies history of heartburn. Denies fever chestpain or sob. She takes no medications, has not been to a doctor in years, generally does not like doctors. Is hypertensive in the ED but states she always has 'white coat htn', hypertension has persisted throughout ED stay and is getting labetalol now. She is a and lives alone for last 27yrs, [place] support in her neighbors. No tob or etoh use. She has never considered her wishes around end of life choices, and at this time would like to be a full code. CONSULTS | PROCEDURES Procedures: CT abdomen pelvis: 1. Inflammatory changes and fluid in the right abdomen. Differential diagnosis appendicitis versus cholecystitis. The appendix is slightly dilated. Inflammatory changes surrounding the appendix. The gallbladder demonstrates pericholecystic fluid and wall enhancement. No calcified gallstones are seen. Mildly prominent bile ducts. 2. No bowel obstruction. No pneumoperitoneum. 3. Small indeterminate lesion in the liver measuring 1.4 cm. This could represent a hemangioma. -This can be further characterized with multiphase liver CT or MRI on a nonemergent basis. Chest x-ray: No radiographic abnormality Abdominal ultrasound, right upper quadrant 1. Mild gallbladder wall thickening. No gallstones. Acalculus cholecystitis remains in the differential diagnosis. 2. Mild biliary ductal dilatation. 3. Echogenic focus in the liver measuring 1.9 cm. This is most consistent with a hemangioma.. HOSPITAL COURSE Hospital Course: (1) Acute abdomen: Plan: Status post exploratory laparotomy and open appendectomy, 09/10/24. She has completed 4 days of antibiotics after surgical source control. She is having bowel movements and tolerating a regular diet. Her acute surgical issues have resolved. Physical therapy evaluation is indicative of the need for residential facility for rehab. She is medically clear for discharge on 09/16. (2) HTN (hypertension): Plan: Prior to this hospitalization she does not have any diagnosis of hypertension. She was started on lisinopril 10 mg a day by surgery. Increased to 20 mg daily. Selected Entries 09/16/24 15:50 09/16/24 21:42 09/16/24 23:37 Pulse Rate [Brachial] 95 H 70 71 Blood Pressure Blood Pressure [Right Brachial artery] 157/78 H 155/72 H 145/70 H 09/17/24 07:52 09/17/24 10:09 09/17/24 10:11 Pulse Rate [Brachial] 97 H Blood Pressure 168/81 H Blood Pressure [Right Brachial artery] 169/81 H Qualifiers: Hypertension type: primary hypertension Qualified Code(s): I10 - Essential (primary) hypertension (3) EASTON (acute kidney injury): Plan: Acute kidney injury likely related to intra-abdominal sepsis which has resolved. She has not had recheck of her renal function in several days. I have sent labs this morning. ALLERGIES Allergies Allergy/AdvReac Type Severity Reaction Status Date / Time No Known Drug Allergies Allergy Verified 09/10/24 15:36 MEDICATIONS Ambulatory Orders Medication Instructions Recorded Confirmed acetaminophen 325 mg tablet 650 mg (2 x 325 mg) PO Q4HR PRN 09/17/24 Pain Or Fever > 38c (100.4f) #90 tabs lisinopril 20 mg tablet 20 mg PO DAILY #30 tabs 09/17/24 PHYSICAL EXAM AT DISCHARGE General Appearance: positive No acute distress and Alert Eyes Bilateral: positive Normal inspection ENT: positive ENT inspection nml Neck: positive Nml inspection Respiratory: positive Breath sounds nml Cardiovascular: positive Regular rate & rhythm Abdomen: positive Other (Abdomen appropriately tender. Midline migue intact and healing well. 2 laparoscopic sites in the suprapubic region and on the left side of the abdomen are also healing well.) Back: positive Nml inspection Extremities: positive Non-tender and No pedal edema Neurologic/Psychiatric: positive Oriented x3 LABS 09/16/24 07:55 09/16/24 07:55 SEPSIS Current Stage of Sepsis: Resolved Possible source of Sepsis: GI tract/intra-abdominal FOLLOW UP Follow Up: General Surgery, Dr. Cortez in about 1 week PCP on SNF discharge. She has previously seen Dr. Lacey in [place]. TIME SPENT Time Spent in Discharge (Minutes): 50 Discharge Plan Discharge Patient Disposition: SNF DC/Xfer Condition: Serious Medically Cleared Date:: 09/16/24 Prescriptions: New lisinopril 20 mg Tablet 20 mg PO DAILY Qty: 30 0RF acetaminophen 325 mg Tablet 650 mg PO Q4HR PRN (Reason: Pain Or Fever > 38c (100.4f)) Qty: 90 0RF Discontinued acetaminophen 500 mg tablet 500 mg PO Q4H PRN (Reason: pain) Activity Restrictions: no lifting >10# x 6 weeks Diet: Regular Print Language: Indonesian Patient Instructions: Surgery Anesthesia After Stand Alone Forms: SNF Discharge Follow-up Care: Clifton Lacey MD [Primary Care Provider] - Niecy Cortez DO [Provider Admit Priv/Credential] -"
[2024-09-17 13:55] VITALS: BP 145/76
== END 2024-09-17 16:08 | DRG 871 ==
LOC: ED 15:20 → SDS 21:07 → MS2 21:07 → SDS 21:11 → MS2 23:02
PROVIDERS: ADMIT Surgery; ATTEND Surgery
DX: N17.9 Acute kidney failure, unspecified; A41.9 Sepsis, unspecified organism; I10 Essential (primary) hypertension; R65.20 Severe sepsis without septic shock; R00.0 Tachycardia, unspecified; R73.9 Hyperglycemia, unspecified; D18.03 Hemangioma of intra-abdominal structures; K35.32 Acute appendicitis with perforation, localized peritonitis, and gangrene, without abscess; Z87.891 Personal history of nicotine dependence; R10.0 Acute abdomen